=== PATIENT | male | born 1985 | race Caucasian/White ===

== ENCOUNTER 2017-06-30 06:02 | Emergency (ER) | payer OTHER ==
[~2017-06-30] VITALS: Ht 198.1 cm; Wt 95.2 kg
[~2017-06-30 06:02] MED LIST: AZIT250; CRUTCH2 XX; IBUP400 PO; ONDA4ODT PO; OXYACE5T PO; OXYC1TAB11 PO; Percocet 5-3251 EACH PO; XARELTO15 MG PO; [UNRECOGNIZED DRUG - REMARK]
[2017-06-30] MEDS ORDERED: IBUP800 PO (07:04)
[2017-06-30] MEDS ORDERED: Norco 5-325 Ta1 EACH PO (07:04)
[2017-11-29] MEDS ORDERED: Norco 5-325 Ta1 EACH PO (11:36)
[2017-11-29] MEDS ORDERED: IBUP800 PO (11:36)
== END 2017-06-30 07:13 | disposition home or self-care (01) ==
LOC: ER 06:02
DX: S93.401A Sprain of unspecified ligament of right ankle, initial encounter (principal); S20.211A Contusion of right front wall of thorax, initial encounter; Z87.891 Personal history of nicotine dependence; W01.0XXA Fall on same level from slipping, tripping and stumbling without subsequent striking against object, initial encounter
CPT/HCPCS: 71101; 93005; 93010; 99283

== ENCOUNTER 2017-07-05 13:20 | Emergency (ER) | payer OTHER ==
[~2017-07-05] VITALS: Ht 195.6 cm; Wt 97.5 kg
[~2017-07-05 13:20] MED LIST changes: +IBUP800 PO; +Norco 5-325 Ta1 EACH PO
[2017-11-29] MEDS ORDERED: IBUP800 PO (11:36)
[2017-11-29] MEDS ORDERED: Norco 5-325 Ta1 EACH PO (11:36)
== END 2017-07-05 13:46 | disposition home or self-care (01) ==
LOC: ER 13:20
DX: Z76.0 Encounter for issue of repeat prescription (principal); R07.89 Other chest pain; Z87.891 Personal history of nicotine dependence
CPT/HCPCS: 99281

== ENCOUNTER 2017-08-18 15:08 | Emergency (ER) | payer OTHER ==
[~2017-08-18] VITALS: Ht 193 cm; Wt 90.7 kg
[2017-08-18] MEDS ORDERED: Veetids 500500 MG PO (17:08)
== END 2017-08-18 17:17 | disposition home or self-care (01) ==
LOC: ER 15:08
DX: J02.0 Streptococcal pharyngitis (principal); Z87.891 Personal history of nicotine dependence
CPT/HCPCS: 87430; 99283; J1100

== ENCOUNTER 2017-09-01 13:14 | Emergency (ER) | payer OTHER ==
[~2017-09-01] VITALS: Ht 193 cm; Wt 82.5 kg
[~2017-09-01 13:14] MED LIST changes: +Veetids 500500 MG PO
[2017-09-01] MEDS ORDERED: TRIA15CR3 TOP (14:41)
[2017-09-01] MEDS ORDERED: Prednisone20 MG PO (14:41)
== END 2017-09-01 14:56 | disposition home or self-care (01) ==
LOC: ER 13:14
DX: L23.7 Allergic contact dermatitis due to plants, except food (principal); Z79.2 Long term (current) use of antibiotics; Z79.51 Long term (current) use of inhaled steroids; Z87.891 Personal history of nicotine dependence
CPT/HCPCS: 99282

== ENCOUNTER → 2017-11-12 | Outpatient (CLI) | payer OTHER ==
[~2017-11-12] MED LIST changes: +Prednisone20 MG PO; +TRIA15CR3 TOP
[2017-11-12 17:20] LABS: Alanine Aminotransfer (ALT/SGP 37 U/L (12-78); Albumin, Blood 4.4 g/dL (3.4-5.0); Albumin/Globulin Ratio 1.4 (0.8-1.8); Alk Phos 62 U/L (50-136); Anion Gap 8 mmol/L (6-16); Aspartate Aminotrans (AST/SGOT 32 U/L (12-37); Blood Urea Nitrogen 14 mg/dL (8-24); Bun/Creatinine Ratio 15.5 (12.0-20.0); CO2, Blood 26 mmol/L (21-32); Chloride, Blood 104 mmol/L (98-108); Globulin, Blood 3.1 g/dL (2.2-4.0); Glomerular Filtration Rate >60 (60-); Glucose, Blood 86 mg/dL (70-99); Sodium, Blood 138 mmol/L (136-145); Total Protein, Blood 7.5 g/dL (6.4-8.2)
== END | disposition home or self-care (01) ==
LOC: LAB SHORT 12:55 → LAB 12:55
PROVIDERS: Internal Medicine Hematology & Oncology
DX: R59.9 Enlarged lymph nodes, unspecified (principal)
CPT/HCPCS: 80053

== ENCOUNTER 2019-03-24 10:05 | Emergency (ER) | payer OTHER ==
[~2019-03-24] VITALS: Ht 198.1 cm; Wt 99.8 kg
[~2019-03-24 10:05] MED LIST changes: +CYCL10 PO
[2019-03-24] MEDS ORDERED: FUNGOID-D113 GM TOP (10:50)
== END 2019-03-24 11:07 | disposition home or self-care (01) ==
LOC: ER 10:05
DX: B35.4 Tinea corporis (principal); Z88.8 Allergy status to other drugs, medicaments and biological substances; Z87.891 Personal history of nicotine dependence
CPT/HCPCS: 99282

== ENCOUNTER 2021-11-09 08:23 | Emergency (ER) | payer OTHER ==
[~2021-11-09] VITALS: Ht 190.5 cm; Wt 111.1 kg
[~2021-11-09 08:23] MED LIST changes: +FUNGOID-D113 GM TOP
== END 2021-11-09 09:57 | disposition home or self-care (01) ==
LOC: ER 08:23
DX: U07.1 COVID-19 (principal); Z88.8 Allergy status to other drugs, medicaments and biological substances; Z87.891 Personal history of nicotine dependence
CPT/HCPCS: 87081; 87430

== ENCOUNTER → 2022-03-11 | Outpatient (CLI) | payer OTHER ==
[2022-03-11 17:41] LABS: Albumin, Blood 4.3 g/dL (3.4-5.0); Albumin/Globulin Ratio 1.1 (0.8-1.8); Bilirubin, Total 0.8 mg/dL (0.1-1.0); Calcium, Blood 9.8 mg/dL (8.5-10.1); Globulin, Blood 3.8 g/dL (2.2-4.0); Thyroid Stimulating Hormone 5.24 uIU/mL (0.360-4.800); Thyroxine (T4) 5.3 ug/dL (4.5-12.1); Total Protein, Blood 8.1 g/dL (6.4-8.2)
== END | disposition home or self-care (01) ==
LOC: LAB SHORT 14:00 → LAB 14:00
PROVIDERS: Student in an Organized Health Care Education/Training Program
DX: E03.9 Hypothyroidism, unspecified (principal); F10.20 Alcohol dependence, uncomplicated
CPT/HCPCS: 80053; 84436; 84443

== ENCOUNTER 2024-01-11 08:02 | Emergency (ER) | payer SELFPAY ==
[~2024-01-11] VITALS: Ht 198.1 cm; Wt 90.7 kg
[~2024-01-11 08:02] MED LIST changes: +Amoxicillin875 MG PO
[2024-01-11 08:54] VITALS: BP 154/80
[2024-01-11] MEDS ORDERED: Dexamethasone Sod Phos 10 MG/ML 1ML VIAL PO ONE (09:20)
[2024-01-11] MEDS ORDERED: Penicillin V P500 MG PO (09:24)
== END 2024-01-11 09:40 | disposition home or self-care (01) ==
LOC: ER 08:02
DX: J02.0 Streptococcal pharyngitis (principal); Z87.891 Personal history of nicotine dependence; Z88.8 Allergy status to other drugs, medicaments and biological substances
CPT/HCPCS: 87430; J1100